=== PATIENT | female | born 1975 | race American Indian/Alaskan Native ===

== ENCOUNTER 2017-01-09 09:56 | Outpatient (CLI) | payer BC, OTHER ==
[2017-01-09 10:42] LABS: Basophils % (Auto) 0.4 % (0.0-1.8); Eosinophils % (Auto) 2.6 % (0.0-4.3); Hematocrit 34.2 % (30.3-42.9); Hemoglobin 11.6 gm/dl (10.1-14.3); Mean Corpuscular HGB Conc 34 % (30-34); Mean Corpuscular Hemoglobin 29 pg (28-32); Mean Corpuscular Volume 85 fl (79-97); Platelet Count 206 K/mm3 (140-440); Red Blood Count 4.02 M/mm3 (3.65-5.03); Red Cell Distribution Width 14.3 % (13.2-15.2); White Blood Count 6.7 K/mm3 (4.5-11.0)
--- NOTE | 2017-01-09 10:57 | Anesthesia Day of Surgery ---
Anesthesia Day of Surgery - Day of Surgery Patient Examined: Yes Patient H&P Reviewed: Yes Patient is NPO: Yes
--- NOTE | 2017-01-09 10:57 | Anesthesia Consultation ---
Anesthesia Consult and Med Hx Date of service: 01/09/17 - Airway Anesthetic Teeth Evaluation: Good ROM Head & Neck: Adequate Mental/Hyoid Distance: Adequate Mallampati Class: Class II Intubation Access Assessment: Probably Good - Pre-Operative Health Status ASA Pre-Surgery Classification: ASA2 Proposed Anesthetic Plan: Spinal - Pulmonary Hx Smoking: No Hx Asthma: No Hx Sleep Apnea: No - Cardiovascular System Hx Hypertension: No - Central Nervous System Hx Seizures: No Hx Psychiatric Problems: No - Endocrine Hx Renal Disease: No Hx Hypothyroidism: No Hx Hyperthyroidism: No - Hematic Hx Anemia: Yes Hx Sickle Cell Disease: No - Other Systems Hx Alcohol Use: No Hx Obesity: Yes (BMI 45.2)
[2017-01-09] MEDS ORDERED: LACTATED RINGERS 1,000 ML IV SCH ×2 (11:00→12:00)
[2017-01-09] MEDS ORDERED: ANCEF/STERILE WATER 2 GM/20 ML 2 GM/20 ML SYRINGE IV NR (11:00)
[2017-01-09] MEDS ORDERED: NARCAN 2 MG/2 ML IV PRN (11:30)
[2017-01-09] MEDS ORDERED: ePHEDrine SULFATE IV PRN (11:30)
[2017-01-09] MEDS ORDERED: BENADRYL IV PRN (11:30)
--- NOTE | 2017-01-09 11:30 | Short Stay Summary ---
Short Stay Documentation Date of service: 01/09/17 Narrative H&P: 41y/o @ 14+1 weeks presents for placement of a cerclage secondary to a history of incompetent cervix. She denies leakage of fluid or vaginal bleeding. - History Principal diagnosis: Incompetent cervix H&P: obtained from office Past Medical History: other (obesity) Past Surgical History: , Other (cerclage) Social history: single - Allergies and Medications Current Medications: Allergies doxycycline Adverse Reaction (Verified 12/15/15 16:06) Unknown Home Medications Medication Instructions Recorded Confirmed Last Taken Type Labetalol [Normodyne] 100 mg PO BID 07/21/13 07/21/13 07/26/13 10:30 History 100MG Promethazine [Phenergan] 25 mg PO Q6H PRN #10 tablet 07/26/13 Unknown Rx oxyCODONE /ACETAMINOPHEN [Percocet 1 - 2 tab PO Q4HR PRN #30 tablet 07/26/13 Unknown Rx 5/325 mg] Active Medications Diphenhydramine HCl (Benadryl) 12.5 mg IV Q2H PRN PRN Reason: Itching Ephedrine Sulfate (Ephedrine Sulfate) 10 mg IV Q2M PRN PRN Reason: Hypotension Stop: 01/09/17 16:00 Cefazolin Sodium (Ancef/Sterile Water 2 Gm/20 Ml) 2 gm in 20 mls @ 80 mls/hr IV PREOP NR PRN Reason: Protocol Stop: 01/09/17 18:00 Lactated Ringer's (Lactated Ringers) 1,000 mls @ 2,250 mls/hr IV PREOP KAILEY Stop: 01/10/17 11:27 Last Admin: 01/09/17 10:30 Dose: 2,250 mls/hr Lactated Ringer's (Lactated Ringers) 1,000 mls @ 125 mls/hr IV DIRECT KAILEY Naloxone HCl (Narcan 2 Mg/2 Ml) 0.2 mg IV Q5M PRN PRN Reason: Respiratory sedation Stop: 01/09/17 11:41 - Physical exam General appearance: no acute distress Integumentary: no rash HEENT: Atraumatic Lungs: Clear to auscultation Breasts: deferred Heart: Regular rate Gastrointestinal: normal Female Genitourinary: deferred Rectal Exam: deferred - Brief post op/procedure progress note Date of procedure: 01/09/17 Pre-op diagnosis: Incompetent cervix Post-op diagnosis: same Procedure: Irizarry cerclage Anesthesia: spinal Surgeon: SAMARIA HUGO Estimated blood loss: 50-100ml Pathology: none Condition: stable - Hospital course Hospital course: The patient was admitted the day of surgery and underwent placement of a Irizarry cerclage secondary to history of incompetent cervix. Please see operative note for details of surgery. The patient was discharged home when she met discharge criteria. - Disposition Condition at discharge: Good Disposition: DISCHARGED TO HOME OR SELFCARE Short Stay Discharge Plan Activity: other (pelvic rest for the duration of the ) Diet: regular Additional Instructions: Scheduled postoperative visit in 1 week Prescriptions: Indomethacin [Indocin] 25 mg PO Q8H #9 capsule oxyCODONE /ACETAMINOPHEN [Percocet 5/325] 1 tab PO Q6HR PRN #30 tablet PRN Reason: Pain
--- NOTE | 2017-01-09 12:34 | Operative Report ---
Operative Report Operative Report: Date of procedure: 01/09/2017 Pre-operative diagnosis: Incompetent cervix; at 14+1 weeks Post-operative diagnosis: same as above Procedure name(s): Juan C cerclage Surgeon: Shara Vieyra M.D. [employer] Apprentice: none Anesthesia: Spinal anesthesia Findings parous cervix; closed cervical os Procedure: The patient was taken to the operating room and given regional anesthesia without complication. The patient was then prepped and draped in a normal sterile fashion. The placement was placed in high lithotomy position. A bivalve speculum was placed in the patient's vagina. A ring forcep was placed on the anterior lip of the cervix. A #1 Prolene suture was placed at 12:00 on the ectocervix and the suture was inserted circumferentially ending at 12:00. A sterile button was used in order to secure the knot securely. There was no evidence of any active bleeding at the conclusion of the case. All vaginal instruments were then removed atraumatically. The patient was taken out of high lithotomy position and transferred to the [facility] and taken to the recovery room in stable condition. All sponge laps and needle counts were correct 2.
[2017-01-09 12:58] VITALS: BP 130/72
--- NOTE | 2017-01-09 17:34 | Post Anesthesia Evaluation ---
- Post Anesthesia Evaluation Patient Participated: Yes Airway Patent: Yes Stable Respiratory Function: Yes Temp > 96.8F: Yes Pain Manageable: Yes Adequeate Hydration: Yes Anesthesia Complications: No Block Receding Appropriately: Not Applicable
== END 2017-01-09 16:00 | disposition home or self-care (01) ==
LOC: TRG 09:56 → EDSTATUS 11:30 → UNDODISOB 16:00 → TRG 16:00
PROVIDERS: ATTEND Obstetrics & Gynecology
DX: O34.92 Maternal care for abnormality of pelvic organ, unspecified, second trimester (principal); Z3A.14 14 weeks gestation of pregnancy; O99.012 Anemia complicating pregnancy, second trimester
CPT/HCPCS: 36415; 59320; 85025; 86850; 86900; 86901; J0690; J7120